=== PATIENT | female | born 1970 | race Hispanic/Latino ===

== ENCOUNTER → 2019-02-20 | Outpatient (CLI) | payer OTHER | END | disposition home or self-care (01) | LOC: OIH 12:36 | PROVIDERS: ATTEND Family Medicine | DX: Z13.6 Encounter for screening for cardiovascular disorders (principal) | CPT/HCPCS: 75571 ==

== ENCOUNTER 2022-11-27 21:09 | Emergency (ER) | payer OTHER ==
[~2022-11-27] VITALS: Ht 157.5 cm; Wt 52.2 kg
[2022-11-27 21:21] VITALS: BP 136/84
[2022-11-27] MEDS ORDERED: AMOX/CLAV 875/125MG TAB PO ONE (23:00)
[2022-11-27] MEDS ORDERED: TETANUS/DIPHTHERIA TOXOID [ADULT] 0.5 ML VIAL IM ONE (23:00)
[2022-11-27] MEDS ORDERED: IBUPROFEN 600 MG TABLET PO ONE (23:00)
[2022-11-27] MEDS ORDERED: IBUP-14 PO (23:05)
[2022-11-27] MEDS ORDERED: AMOX1TAB16 PO (23:05)
[2022-11-28] MEDS ORDERED: IBUPROFEN 400 MG TABLET ONE (00:11)
[2022-11-28] MEDS ORDERED: TETANUS/DIPHTHERIA TOXOID [ADULT] 0.5 ML VIAL IM ONE (00:30)
== END 2022-11-28 01:05 | disposition home or self-care (01) ==
LOC: EDH 21:09
DX: S52.502A Unspecified fracture of the lower end of left radius, initial encounter for closed fracture (principal); S61.452A Open bite of left hand, initial encounter; S20.111A Abrasion of breast, right breast, initial encounter; M54.50 Low back pain, unspecified; E11.9 Type 2 diabetes mellitus without complications; J45.909 Unspecified asthma, uncomplicated; Z79.899 Other long term (current) drug therapy; W54.0XXA Bitten by dog, initial encounter; Y93.89 Activity, other specified; Y92.89 Other specified places as the place of occurrence of the external cause; Y99.8 Other external cause status
CPT/HCPCS: 72100; 73120; 90471; 90714